=== PATIENT | male | born 1950 | race Caucasian/White ===

== ENCOUNTER 2022-12-09 00:19 | Outpatient (CLI) | payer MEDICARE, OTHER, SELFPAY ==
--- NOTE | 2022-12-09 | DI.CT_ITS ---
Exam(s) CT ABDOMEN PELVIS CTA EXAM: CT ABDOMEN PELVIS CTA CLINICAL HISTORY: EARLY SATIETY,WT LOSS, R68.81. TECHNIQUE: Imaging Protocol: Axial CT angiography was performed with multi-slice acquisition and m ulti-planar and/or 3D reconstructions. CONTRAST MATERIAL: Intravenous: Omnipaque 350 Contrast volume:100mL Oral: No COMPARISON: No exams were available for comparison FINDINGS: ABDOMEN AND PELVIS: Abdomen: Celiac axis/mesenteric arteries: No evidence of occlusion or significant stenosis. Mild atheroscleros is the celiac artery. Mild atherosclerosis at the origin of the superior mesenteric artery. Renal Arteries: No evidence of occlusion or significant stenosis. There is a single renal artery perf using each kidney. Mild atherosclerosis at the origin of the left renal artery. Mild atherosclerosis in the proximal right renal artery. Aorta: No evidence of occlusion or significant stenosis. No aneurysm or dissection. Atherosclerosis. Pelvis: Iliac Arteries: No evidence of occlusion or significant stenosis. There is atherosclerosis present. Particularly involving the common carotid arteries bilaterally. Common Femoral Arteries: No evidence of occlusion or significant stenosis. Atherosclerosis is presen t. ABDOMEN: Lung bases: Unremarkable. Liver: Normal density. No measurable mass. Portal, Superior Mesenteric, and Splenic Veins: Unremarkable. Gallbladder and Biliary Tract: No radiodense calculus or dilation. Pancreas: Normal density, no abnormal calcifications or inflammatory process. Spleen: Normal. Adrenals: No masses seen. Kidneys: Normal size, contour and axis. No radiodense stones or obstructive uropathy. There are bilat eral simple renal cysts. The largest is in the left kidney and measures 4.5 x 4.1 cm. No follow-up is recommended. Bowel: There is a moderate amount of stool throughout the colon suggesting constipation. There is no evidence of bowel wall thickening or obstruction. There is no evidence of appendicitis. There is a left inguinal hernia containing predominantly fat. There is a knuckle of sigmoid colon located with in the hernia but no obstruction or incarceration is seen. Peritoneal Cavity: No ascites, collection or mesenteric inflammatory response. No free air.Postsurgic al changes in the right inguinal region. Lymph Nodes: Within normal limits. Bones: Within normal limits for the patient's age. Soft Tissues: There is a small fat containing umbilical hernia. PELVIS: Bladder: Symmetric distention, no gross wall thickening. Reproductive Organs: Unremarkable as visualized. Lymph Nodes: Within normal limits. Bones: Within normal limits. IMPRESSION: 1. Atherosclerosis is present. No significant stenosis or occlusion. No aneurysm is identified. 2. No acute abdominal pelvic process. 3. Moderate amount of stool throughout the colon suggesting constipation. 4. Incidental findings in the abdomen and pelvis as described above. RADIATION DOSE DELIVERED: Total DLP DATA REPOSITORY: All CT scans at this facility are submitted to the National Radiology Data Registry (NRDR) Dose Index Registry (DIR) with the [employer] ([employer]). RADIATION OPTIMIZATION: All CT scans at this facility use at least one of these dose optimization te chniques: automated exposure control; mA and/or kV adjustment per patient size (includes targeted exa ms where dose is matched to clinical indication); or iterative reconstruction.
[2022-12-09] MEDS: Omnipaque 350 MG/ML 500 ML BTL-Imaging package 100 ML IJ (13:41)
[2022-12-09] MEDS: Normal Saline - Diluent 50 ML VIAL IJ (13:42)
== END 2022-12-09 00:39 ==
PROVIDERS: Visit Provider Family Medicine
DX: R68.81 Early satiety (principal); I70.0 Atherosclerosis of aorta; N28.1 Cyst of kidney, acquired
CPT/HCPCS: 74174